=== PATIENT | male | born 1945 | race Caucasian/White ===

== ENCOUNTER 2021-04-18 09:20 | Emergency (ER) | payer MEDICARE, SELFPAY ==
--- NOTE | ~2021-04-18 | XR_ITS ---
EXAMINATION: XR CHEST CLINICAL INFORMATION: SOB. COMPARISON: None TECHNIQUE: Frontal view of the chest was obtained. FINDINGS: The lungs are hypoexpanded but clear. The heart size is borderline enlarged with normal pulmonary vascularity. No gross bony abnormality seen. XR/XR chest 1V IMPRESSION: Expanded lungs without acute process. Mild cardiomegaly.
[2021-04-18 09:37] VITALS: BP 150/63; BP 174/63; PULSE 71; PULSE 78; RESP 18; TEMP 37.7; O2SAT 94; O2SAT 95; BMI 33.0
[2021-04-18 10:54] LABS: Influenza A PCR NEGATIVE (Negative); Influenza B PCR NEGATIVE (Negative); Resp Syncy Virus RNA Qual PCR NEGATIVE (Negative); SARS COV2 PCR INHOUSE POSITIVE (Negative)
[2021-04-18 11:27] VITALS: BP 181/84; PULSE 67; RESP 18; TEMP 37.1; O2SAT 97
--- NOTE | 2021-04-18 11:30 | ED.GENADULT ---
HPI - General Adult General Chief complaint: General Medical Stated complaint: COLD LIKE SYMTPOMS, FULLY VACCINATED Time Seen by Provider: 04/18/21 09:36 History of Present Illness HPI narrative: Patient is 76 years old history of multiple back surgery in the past. Patient also had her his coronavirus vaccine back in August. Came back in today complaining that she use been having coughing congestion upper respiratory symptoms. Positive generalized malaise. Patient from home. Also having back pain that radiates down the leg which is chronic. Baseline patient ambulates with a walker. Pain is 8/10. Related Data Allergies Allergy/AdvReac Type Severity Reaction Status Date / Time lisinopril [Lisinopril] Allergy Unknown SWELLING Verified 04/18/21 09:43 TONGUE Review of Systems Review of Systems: Positive back pain positive coughing upper respiratory symptoms Yes all other systems are reviewed and are negative PMFSH Past Medical History Attestation statement: The following information was validated with the patient. Medical History Diabetes Paget's disease Surgical History History of back surgery Social History Social History Advance Directives: No Advance Directives Information Provided: No Physical Exam Vital Signs: Vital Signs: Last Vital Signs Temp 98.7 F 04/18/21 11:27 Pulse 67 04/18/21 11:45 Resp 18 04/18/21 11:27 BP 181/84 H 04/18/21 11:27 Pulse Ox 97 04/18/21 11:45 Body Mass Index 33.0 Appearance: Alert. Oriented X3. No acute distress. Eyes: Pupils equal, round and reactive to light. ENT: Pharynx normal. Neck: Normal inspection. Neck supple. No lymph nodes noted. No crepitus CVS: Normal heart rate and rhythm. Pulses normal. Normal S1 and S2 Respiratory: No respiratory distress. Breath sounds normal. Positive Wheezing. No rales Abdomen: Soft and nontender. No rigidity. No distention. good BS x4 Skin: Skin warm and dry. Normal skin color. Normal skin turgor. Extremities: No lower extremity edema. Neurovascular intact to all extremities. No Lacerations. No Rash Neuro: Oriented X 3. No motor deficit. No sensory deficit. Moving all extermities. No slurred speech Medical Decision Making MDM Narrative Medical decision making narrative: Chronic back pain. No new bowel urinary incontinence. No new focal weakness. Will get physical therapy to evaluate patient for possible rehab placement as family feel patient unsafe at home. Patient's COVID test was positive positive URI symptoms. Luckily patient already received his vaccine. His O2 sats 97% on room air. He is in no distress. Will get an x-ray. Will monitor carefully. Chest x-ray showed no focal infiltrate patient wants to be placed in rehab for his back pain. Currently is in stable condition. No distress. Social work consult physical therapy consulted. Lab Data Labs: Lab Results 04/18/21 Range/Units 10:06 Coronavirus (PCR) POSITIVE A (Negative) Influenza Type A (PCR) NEGATIVE (Negative) Influenza Type B (PCR) NEGATIVE (Negative) RSV RNA Qual (PCR) NEGATIVE (Negative) Discharge Plan Discharge Clinical Impression: COVID-19, Back pain
[2021-04-18 11:45] VITALS: PULSE 67; O2SAT 97
--- NOTE | 2021-04-18 12:16 | MHC.CM.ED ---
Addendum entered by Luz Maria Arceo 04/18/21 12:20: Genoveva can be reached via telephone at [phone]. Original Note: Received case management consult from Dr Mares. Patient came to the ER due to cold like symptoms since last Sunday. Patient is positive for Covid. Met with patient's daughter, Genoveva in regards to discharge planning. Patient lives alone, ambulates with a walker and is active with [facility] for nursing and PT. Patient had back surgery in February. Since that time patient has been having difficulty ambulating. PCP verified. Patient received Pfizer vaccines on 09/08 and 09/29. Genoveva has been looking into rehab at [facility]. T/W explained rehab placement may be difficult at this time due to +Covid. Genoveva verbalizes understanding and agreeable to referral being broadcasted for acute rehab and fpc facilities. Referrals broadcasted in [employer]. Continue to monitor for d/c needs.
[2021-04-18] MEDS: oxyCODONE HCl Immed Release 5 MG TABLET PO (12:48)
--- NOTE | 2021-04-18 15:02 | MHC.CM.ED ---
[facility] is the only acute rehab that is able to accept Covid patients. Waiting to hear from liaison if bed can be offered. [facility] is only facility in the area that can potentially offer a +covid bed. Genoveva aware of above information and verbalizes understanding that patient will spend the night in the ER. Continue to monitor for d/c needs.
--- NOTE | 2021-04-18 20:44 | PC.NURSE ---
patient COVID positive. A+ox4. Ambulates independently. Frustrated with being in hospital very disrespectful and inappropriate to staff. VSS. Resting safely.
[2021-04-18 22:18] VITALS: BP 135/72; PULSE 65; RESP 18; TEMP 36.1; O2SAT 98
[2021-04-18 23:33] VITALS: BP 177/97; PULSE 53; RESP 13; O2SAT 947
[2021-04-19] MEDS: diazePAM 5 MG TABLET PO (02:01)
--- NOTE | 2021-04-19 02:19 | PC.NURSE ---
pt a&O, denies sob or chest pain. pt incontinent of urine and stool. complete bed change and win[facility]red care. medicated per Sep.
[2021-04-19 02:20] VITALS: RESP 16; TEMP 37.3
[2021-04-19] MEDS: ondansetron HCL 4 MG/2 ML VIAL IVPUSH (03:45)
--- NOTE | 2021-04-19 03:49 | PC.NURSE ---
pt having nausea and vomiting, provider aware and medicated per mar.
[2021-04-19 04:38] VITALS: BP 171/74; PULSE 76
--- NOTE | 2021-04-19 05:26 | PC.NURSE ---
pt reports relief with nausea medication.
--- NOTE | 2021-04-19 06:04 | PC.NURSE ---
PT REQUESTING RECLINER. PT HELPED INTO RECLINER BY THIS PCT. PT STATES HE IS UNCOMFORATBLE IN RECLINER AND WANTS TO GO BACK INTO BED. PT NOW RESTING IN BED. CALL GUILLERMO PLACED WITHIN REACH.
--- NOTE | 2021-04-19 06:45 | PC.NURSE ---
Spoke to daughter Genoveva in regard to father current status and plan of care. [phone]
[2021-04-19 07:26] VITALS: BP 170/70; PULSE 64; RESP 18; O2SAT 97
--- NOTE | 2021-04-19 07:31 | PC.NURSE ---
pt alert and oriented. denies chest pain/dizziness/headache, dry non-productive cough noted. Pt rang to be assisted back to bed and stated he wants to go home. pt reports sob after transferring from recliner to bed, after transfer pt satting 97-98% on 2L O2 n/c, no apparent distress noted. resting quietly. will continue to monitor
--- NOTE | 2021-04-19 08:51 | MHC.CM.ED ---
Patient remains in ER. [facility] is not able to offer a bed. [facility] is looking for bed availability. Continue to monitor for d/c needs.
[2021-04-19] MEDS: FLUoxetine HCl 20 MG CAPSULE 40 MG PO (09:17)
[2021-04-19] MEDS: Ferrous Sulfate 324 MG TABLET.DR PO (09:18)
[2021-04-19] MEDS: Tamsulosin HCL 0.4 MG CAPSULE PO (09:18)
--- NOTE | 2021-04-19 09:54 | MHC.CM.ED ---
Received telephone call from patient's daughter Genoveva. Genoveva is reluctant to send patient to [facility] because she has not heard good things about the facility. Genoveva will speak to her siblings about finding private pay home health aides. Also agreeable to referral being broadcasted within 50 miles. Referral broadcasted in [employer]. Continue to monitor for d/c needs.
[2021-04-19 10:48] VITALS: BP 113/57; PULSE 57; RESP 18; O2SAT 98
--- NOTE | 2021-04-19 10:56 | PC.NURSE ---
pt up to recliner, vss, O2 satting 96-97% r/a. no sob/headache/dizziness. no chest pain. pt continues to ask when can he go home. will follow up with upper caser.
--- NOTE | 2021-04-19 11:05 | PC.NURSE ---
pt transferred back to bed, O2 remains 96-98% r/a after transfer. pt denies sob. will continue to monitor.
[2021-04-19 11:08] VITALS: PULSE 62; O2SAT 98
--- NOTE | 2021-04-19 13:00 | PC.NURSE ---
pt up to recliner to eat lunch. no c/o sob/headache/dizziness. vss. O2 sat 96-98% R/A. Pt cleared for discharge to home.
--- NOTE | 2021-04-19 13:03 | MHC.CM.ED ---
Patient and family has decided to patient to return home with [facility]. [facility] booked. Med nec with chart. Patient, daughter Joaquin Tomas RN and Nyasia SABILLON aware. Continue to monitor for d/c needs.
== END 2021-04-19 18:12 | disposition skilled nursing facility (03) ==
PROVIDERS: Emergency Provider Emergency Medicine Emergency Medical Services; PCP Internal Medicine
DX: U07.1 COVID-19 (principal); M54.5 Low back pain
CPT/HCPCS: 0241U; 36415; 71045; 96374; 97162; 99284; J2405

== ENCOUNTER 2021-06-22 13:55 | Outpatient (REF) | payer MEDICARE, SELFPAY ==
--- NOTE | ~2021-06-22 | CT_ITS ---
EXAMINATION: CT ABDOMEN AND PELVIS WITH CONTRAST CLINICAL INFORMATION: Abdominal pain, sweating. COMPARISON: None TECHNIQUE: Multidetector volumetric images were obtained from the superior aspect of the liver through the pubic symphysis following administration 85 mL of Omnipaque 350 intravenous contrast. Sagittal and coronal reformatted images were obtained on the technologist's workstation. Oral contrast: No This CT examination was performed using dose optimization techniques as appropriate, variously including the following: *Automated exposure control *Adjustment of mA and/or kV according to patient size (this includes techniques or standardized protocols for targeted exams where dose is matched to indication/reason for exam; i.e. extremities or head) *Use of iterative reconstruction technique DLP: 664 mGy-cm FINDINGS: LUNG BASES: There is platelike atelectasis left lung base. The heart size is normal. LIVER, GALLBLADDER, AND BILIARY TREE: The liver is normal in size, shape, and attenuation. No focal hepatic lesion or biliary ductal dilatation is present. The gallbladder has been surgically removed. PANCREAS: Unremarkable. SPLEEN: Unremarkable. ADRENAL GLANDS: Unremarkable. KIDNEYS AND URETERS: The kidneys are normal in size, shape, and attenuation. There is mild thinning of bilateral kidney cortices. Small hypodense areas seen in the midpole right kidney probable small cyst measuring 8 mm. No hydronephrosis, hydroureter, or calculi seen. No perinephric stranding. BLADDER: Unremarkable. GASTROINTESTINAL TRACT: There is scattered stool, diverticuli and gas seen throughout the colon. There is no mural thickening or fat stranding to suspect any diverticulitis. Oral contrast opacified small bowel loops are normal caliber. There is mild nonspecific thickening of second segment of the duodenum question peristalsis versus duodenitis. The proximal jejunal loops show some mural thickening as well. Appendix is not visualized. ABDOMINAL WALL: No significant hernia is appreciated. LYMPH NODES: No abnormal size retroperitoneal or mesenteric lymph nodes seen. VASCULAR: Mild sclerotic changes of abdominal aorta noted without aneurysmal dilatation. PELVIC VISCERA: There is no free air or free fluid. The prostate gland is normal size with central gland calcification. OSSEOUS STRUCTURES: Degenerative disc changes and vacuum disc phenomena L2-L3 through L5/S1 disc level. There is superior endplate compression fracture L5 vertebra likely old. Mild deformity of L1 and T12 vertebra is noted also . CT/CT abdomen pelvis w con IMPRESSION: Mild mural thickening involving the duodenum and scattered thickening of the proximal jejunal loops suspicious for inflammatory or infectious etiology there is no gastric or duodenal ulceration suspected on this exam. Mild constipation. Fleischner guidelines were followed.
[2021-06-22] MEDS: iohexoL 350 MG/ML 100 ML INFUS..BTL IV (16:31)
[2021-06-22] MEDS: Barium Sulfate Oral (Berry) 450 ML ORAL.SUSP 900 ML PO (16:32)
== END 2021-06-22 13:56 | disposition home or self-care (01) ==
LOC: HO.CT 13:55
PROVIDERS: PCP Internal Medicine; Visit Provider Internal Medicine
DX: L74.9 Eccrine sweat disorder, unspecified (principal); R10.9 Unspecified abdominal pain
CPT/HCPCS: 74177; Q9967

== ENCOUNTER 2021-07-20 15:20 | Outpatient (REF) | payer MEDICARE, SELFPAY ==
--- NOTE | ~2021-07-20 | US_ITS ---
EXAMINATION: US RETROPERITONEAL LIMITED (RENAL ONLY) CLINICAL INFORMATION: Renal calculus. COMPARISON: CT 06/22/2021 TECHNIQUE: Real-time imaging of the kidneys. FINDINGS: RIGHT KIDNEY: 9.4 x 4.8 x 3.6 cm (SAG x AP x TRV). The kidney is normal in size, contour, and echogenicity. Renal cortical thickness is normal. No hydronephrosis. 2 small simple appearing cysts are identified measuring 1.1 cm in maximal dimension, no further imaging follow-up recommended. Nonobstructing calculus lower pole adjacent to one of the cysts measuring 0.5 x 0.4 cm. LEFT KIDNEY: 10.6 x 5.0 x 4.4 cm (SAG x AP x TRV). The kidney is normal in size, contour, and echogenicity. Renal cortical thickness is normal. No focal parenchymal lesions or hydronephrosis. Nonobstructing lower pole calculus measures 0.3 x 0.3 cm. US/US renal BI IMPRESSION: Small nonobstructing renal calculi as described above, one within each kidney.
== END 2021-07-20 15:21 | disposition home or self-care (01) ==
LOC: HO.US 15:20
PROVIDERS: PCP Internal Medicine; Visit Provider Urology
DX: N20.2 Calculus of kidney with calculus of ureter (principal)
CPT/HCPCS: 76775

== ENCOUNTER 2023-03-06 16:18 | Emergency (ER) | payer MEDICARE, SELFPAY ==
--- NOTE | ~2023-03-06 | CT_ITS ---
Examination: CT brain and CT cervical spine without contrast. CLINICAL INDICATION: Fall with head strike. COMPARISON: 02/05/2023 TECHNIQUE: 5 mm thin axial and reformatted 2 mm thin sagittal and coronal images of brain were obtained. Subsequently axial 3 mm thin and reformatted 2 mm thin sagittal and coronal images of cervical spine were obtained. DLP 1424. FINDINGS: Brain: There is no acute intra-axial, extra-axial bleed, masses or midline shift. There is no acute infarction in evolution. There is no edema. The rodriguez to white matter differentiation is maintained normal. The lateral ventricles are symmetrical in size and configuration without enlargement. Bone windows reveal no calvarial abnormality. There is no scalp soft tissue abnormality. Cervical spine: There is reversal of cervical lordosis. There is grade 1 anterolisthesis C3 over C4, C4 over C5 and C7 over T1. There is loss of C5-C6, C6-C7 and C7-T1 disc heights. There is moderate left C5-C6 and C6-C7 neural foraminal narrowing from uncovertebral hypertrophic changes. There is moderate C3-C4, C4-C5 facet joint hypertrophy. The craniovertebral junction and the C1-C2 alignment is normal. No visible acute fracture, dislocation or subluxation seen. The prevertebral and paravertebral soft tissues are normal. The airway is widely patent. CT/CT head/brain wo IV con IMPRESSION: 1. No acute intracranial process seen. 2. There is reversal of cervical lordosis with degenerative disc changes C5-C6, C6-C7 and C7-T1 disc levels. There is grade 1 anterolisthesis C3 over C4, C4 over C5 and C7 over T1. No visible acute fracture or dislocation seen.
--- NOTE | ~2023-03-06 | XR_ITS ---
EXAMINATION: XR CHEST CLINICAL INFORMATION: Confusion COMPARISON: Chest radiograph from 04/18/2021 TECHNIQUE: Frontal view of the chest was obtained. FINDINGS: Bilateral low lung volumes. Accentuation of the pulmonary vasculature. No pneumothorax. Trachea is midline. Cardiac mediastinal silhouette is enlarged. Aorta demonstrates tortuosity with sclerotic calcifications. No large pleural effusion. Degenerative changes of the thoracolumbar slight levocurvature of the upper lumbar spine. Soft tissues are unremarkable. XR/XR chest 1V IMPRESSION: 1. Bilateral low lung volumes. 2. Accentuation of the pulmonary vasculature.
--- NOTE | ~2023-03-06 | CT_ITS ---
Examination: CT brain and CT cervical spine without contrast. CLINICAL INDICATION: Fall with head strike. COMPARISON: 02/05/2023 TECHNIQUE: 5 mm thin axial and reformatted 2 mm thin sagittal and coronal images of brain were obtained. Subsequently axial 3 mm thin and reformatted 2 mm thin sagittal and coronal images of cervical spine were obtained. DLP 1424. FINDINGS: Brain: There is no acute intra-axial, extra-axial bleed, masses or midline shift. There is no acute infarction in evolution. There is no edema. The rodriguez to white matter differentiation is maintained normal. The lateral ventricles are symmetrical in size and configuration without enlargement. Bone windows reveal no calvarial abnormality. There is no scalp soft tissue abnormality. Cervical spine: There is reversal of cervical lordosis. There is grade 1 anterolisthesis C3 over C4, C4 over C5 and C7 over T1. There is loss of C5-C6, C6-C7 and C7-T1 disc heights. There is moderate left C5-C6 and C6-C7 neural foraminal narrowing from uncovertebral hypertrophic changes. There is moderate C3-C4, C4-C5 facet joint hypertrophy. The craniovertebral junction and the C1-C2 alignment is normal. No visible acute fracture, dislocation or subluxation seen. The prevertebral and paravertebral soft tissues are normal. The airway is widely patent. CT/CT cervical spine wo IV con IMPRESSION: 1. No acute intracranial process seen. 2. There is reversal of cervical lordosis with degenerative disc changes C5-C6, C6-C7 and C7-T1 disc levels. There is grade 1 anterolisthesis C3 over C4, C4 over C5 and C7 over T1. No visible acute fracture or dislocation seen.
[2023-03-06 16:22] VITALS: BP 142/78; PULSE 82; O2SAT 94
[2023-03-06 16:31] VITALS: BP 138/65; PULSE 87; RESP 16; TEMP 37.2; O2SAT 94; BMI 31.6
--- OUTSIDE RECORDS SUMMARY | 2023-03-06 16:41 | XMS_ITS | Continuity of Care Document ---
Author Name Unknown Organization [facility] ter Address [address] [place] [id number]- Care Team Providers Care Skeins Yarn Examiner Name Role Phone River Hernandez MD Primary Care Physician Encounter [facility] [place] Date(s): 09/27/20 - 09/27/[address] [address]- Discharge Disposition: A-D/C Home Attending Physician: Chemo Munguia DO Admitting Physician: Chemo Munguia DO Referring Physician: Not on Staff, Referring MD Allergies, Adverse Reactions, Alerts Substance Reaction Severity Status NKA Active Immunizations Given and Recorded Vaccine Date Status Refusal Reason Zoster Vaccine Live 07/27/08 Given Medications acetaminophen-HYDROcodone 325 mg-10 mg oral tablet 1 tablet, By Mouth, Every 6 hours, PRN for pain, 0 Refills, Maintenance, 09/22/15 10:26:30, Tablet Start Date: 09/22/15 Status: Ordered diazepam 2 mg oral tablet 1 tablet = 2 mg, By Mouth, Daily, 0 Refills, Maintenance, 09/22/15 10:26:15, Tablet Start Date: 09/22/15 Status: Ordered fluoxetine 40 mg oral capsule 1 capsule = 40 mg, By Mouth, Daily, 0 Refills, Maintenance Start Date: 10/09/11 Status: Ordered fluticasone 50 mcg inhalation powder Inhalation, 2 times a day, 0 Refills, Maintenance Start Date: 10/09/11 Status: Ordered gabapentin 300 mg oral capsule 1 capsule = 300 mg, By Mouth, Daily at bedtime, 0 Refills, Maintenance, 09/22/15 10:26:01, Capsule Start Date: 09/22/15 Status: Ordered losartan 50 mg oral tablet 1 tablet = 50 mg, By Mouth, Daily, 0 Refills, Maintenance Start Date: 10/09/11 Status: Ordered meloxicam 15 mg oral tablet 1 tablet = 15 mg, By Mouth, Daily, # 30 tablet, 0 Refills, Maintenance, 09/22/15 10:27:07, Tablet Start Date: 09/22/15 Status: Ordered metformin 500 mg oral tablet, extended release 1 tablet = 500 mg, By Mouth, Daily, 0 Refills, Maintenance Start Date: 10/09/11 Status: Ordered MorPHINE Inj 4 mg, Injection, IV Push Slowly, Every 15 minutes for 3 doses/times, PRN for Pain , Severe, Routine, 09/27/20 9:03:00 EST, Stop date Limited # of times Start Date: 09/27/20 Stop Date: 09/27/20 Status: Completed omeprazole 20 mg oral enteric coated capsule 1 capsule = 20 mg, By Mouth, Daily, 0 Refills, Maintenance Start Date: 10/09/11 Status: Ordered ProAir HFA Inhalation, 4 times a day, 0 Refills, Maintenance Start Date: 10/09/11 Status: Ordered simvastatin 40 mg oral tablet 1 tablet = 40 mg, By Mouth, Daily at bedtime, 0 Refills, Maintenance Start Date: 10/09/11 Status: Ordered Problem List Condition Effective Dates Status Health Status Inform ant Benign Essential Hypertension(Confirmed) Active COPD (chronic obstructive pu lmonary disease)(Confirmed) Active Diabetes mellitus(Confirmed) Active Hyperlipidemia(Confirmed) Active Nephrolithiasis(Confirmed) Active Low back pain(Confirmed) Active Anxiety and depression(Confirmed) Active Morbid obesity(Confirmed) 1 Active VICK on CPAP(Confirmed) Active Psoriasis(Confirmed) Active 1Initial Weight 08/26/15 293.2 lbs. Results Radiology Reports * Exam Date Time Procedure Performing Provider Status 09/27/20 10:21 AM Chest 2 Views Frontal and Lat Lyndsey Wagner; Auth (Verified) Notes: (Chest 2 Views Frontal and Lat) Reason For Exam: Shortness of Breath RESULT: Chest 2 Views Frontal and Lat Chest 2 Views Frontal and Lat Hx of Present Illness: Pt. r p with left flank pain x 3 days- constant with varying degrees of intensity; radiates around to right lat. abd.; no fever or chills; +nausea without vomiting. +constipation; no hematuria or dysuria- +increased frequency; Reason: Shortness of Breath; Clinical Question(s): Pneumonia COMPARISON: 09/06/17 FINDINGS: No acute cardiopulmonary process IMPRESSION: No acute abnormality. WSN: [id number] Ordering Physician: Chemo Munguia Dictated By: Bridger Santiago MD Dictated Date/Time: 09/27/20 10:23 a Reviewed By: Bridger Santiago MD Signed By: Bridger Santiago MD Signed Date/Time: 09/27/20 10:23 am Transcribed By: DERRELL Transcribed Date/Time: 09/27/20 10:21 am Vital Signs Most recent to oldest [Reference Range]: 1 2 3 Oxygen Saturation [94-100 %] 95 % (09/27/20 12:17 PM) 98 % (09/27/20 10:00 AM) 97 % (09/27/20 9:06 AM) Pulse Rate [55-90 bpm] 65 bpm (09/27/20 12:17 PM) 69 bpm (09/27/20 10:00 AM) 63 bpm (09/27/20 9:06 AM) Blood Pressure [90-138/55-84 mm Hg] 129/61mm Hg (09/27/20 12:17 PM) 159/78mm Hg *H* (09/27/20 10:00 AM) 156/63mm Hg *H* (09/27/20 9:06 AM) Respiratory Rate [16-30 br/min] 16 br/min (09/27/20 12:17 PM) 18 br/min (09/27/20 12:08 PM) 18 br/min (09/27/20 11:02 AM) Temperature [96.8-100.4 DegF] 98.9 DegF (09/27/20 12:17 PM) 100.4 DegF (09/27/20 9:06 AM) 99.8 DegF (09/27/20 7:42 AM) Mode of Delivery (Oxygen) Room air (09/27/20 12:17 PM) Room air (09/27/20 10:00 AM) Room air (09/27/20 9:06 AM) Blood pressure sites Arm, right (09/27/20 12:17 PM) Temperature Route Oral (09/27/20 12:17 PM) Oral (09/27/20 9:06 AM) Oral (09/27/20 7:42 AM) Social History Social History Type Response Smoking Status Former smoker; Other : smoked for 50 years; entered on: 09/22/15 Sex
--- OUTSIDE RECORDS SUMMARY | 2023-03-06 16:41 | XMS_ITS | Continuity of Care Document ---
Author Name Unknown Organization [facility] Address [address] [place] [id number]- Care Team Providers Care Club Manager Name Role Phone River Hernandez MD Primary Care Physician [place] [facility] [place] 02/13/[address] [address]- Discharge Disposition: A-D/C Home Attending Physician: Lorena Cantu Admitting Physician: Lorena Cantu Referring Physician: Lorena Cantu Allergies, Adverse Reactions, Alerts Substance Reaction Severity Status NKA Active Immunizations Given and Recorded Vaccine Date Status Refusal Reason SARS-CoV-2 (COVID-19) mRNA BNT-162b2 vac 09/29/20 Given SARS-CoV-2 (COVID-19) mRNA BNT-162b2 vac 09/08/20 Given Zoster Vaccine Live 07/27/08 Given Medications acetaminophen-HYDROcodone [...] Refills, Maintenance Start Date: 10/09/11 Status: Ordered omeprazole 20 mg oral enteric coated capsule [...] Psoriasis(Confirmed) Active 1Initial Weight 08/26/15 293.2 lbs. Social History Social History Type Response Smoking Status Former smoker; Other : smoked for 50 years; entered on: 09/22/15 Sex
--- OUTSIDE RECORDS SUMMARY | 2023-03-06 16:41 | XMS_ITS | Continuity of Care Document ---
Author Name Unknown Organization [facility] Address [address] [place] [address], [address] [place] [address]- Care Team Providers Care Landing Support Specialist Name Role Phone River Hernandez MD Primary Care Physician [place] [facility] [place]16[place] - 10/16/20 [facility] [address] [place] [address], [address] [place] [address]- Attending Physician: Ramya Gottlieb Admitting Physician: AdmRamya curtis Referring Physician: AdmtrRamya Allergies, Adverse Reactions, Alerts Substance Reaction Severity [...]
--- OUTSIDE RECORDS SUMMARY | 2023-03-06 16:41 | XMS_ITS | Continuity of Care Document ---
Author Name Unknown Organization [facility] ter Address [address] [place] [id number]- Care Team Providers Care Florist Designer Name Role Phone River Hernandez MD Primary Care Physician [place] [facility] [place] - 05/11/[address] [address]- Discharge Disposition: A-D/C Home Attending Physician: Trung Perla MD Admitting Physician: James Hall MD Referring Physician: Not on Staff, Referring MD Allergies, Adverse Reactions, Alerts Substance Reaction Severity Status NKA Active Immunizations Given and Recorded Vaccine Date Status Refusal Reason influenza virus vaccine, inactivated 05/10/21 Give n SARS-CoV-2 (COVID-19) mRNA BNT-162b2 vac 09/29/20 Given SARS-CoV-2 (COVID-19) mRNA BNT-162b2 vac 09/08/20 Given Zoster Vaccine Live 07/27/08 Given Medications diazepam 2 mg oral tablet 1 tablet = 2 mg, By Mouth, Daily, 0 Refills, Maintenance, 09/22/15 10:26:15, Tablet Start Date: 09/22/15 Status: Ordered Dilaudid Inj 0.5 mg, Injection, IV Push Slowly, Every 4 hours, PRN for Pain , Severe, Routine, 05/09/21 22:13:00EDT Start Date: 05/09/21 Stop Date: 05/12/21 Status: Discontinued Flomax 0.4 mg oral capsule 0.4 mg, 1, capsule, By Mouth, Daily, Refills 0, Maintenance, 02/28/21 9:13:00 EDT, Partial fill upon patient request if the prescription is for a schedule II opioid drug. Start Date: 02/28/21 Status: Ordered fluoxetine 40 mg oral capsule [...] Refills, Maintenance Start Date: 10/09/11 Status: Ordered magnesium gluconate 500 mg oral tablet 2 tablet = 1,000 mg, By Mouth, Daily, 0 Refills, Maintenance, 02/28/21 9:24:00 EDT, Partial fill upon patient request if the prescription is for a schedule II opioid drug. Start Date: 02/28/21 Status: Ordered metformin 500 mg oral tablet, extended release 1 tablet = 500 mg, By Mouth, Daily, 0 Refills, Maintenance Start Date: 10/09/11 Status: Ordered omeprazole 20 mg oral enteric coated capsule 1 capsule = 20 mg, By Mouth, Daily, 0 Refills, Maintenance Start Date: 10/09/11 Status: Ordered oxyCODONE 10 mg oral tablet 1 tablet = 10 mg, By Mouth, Every 4 hours, PRN as needed for pain, 0 Refills, Maintenance, 03/03/2112:31:00 EDT, Tablet, Partial fill upon patient request if the prescription is for a schedule II opioid drug. Start Date: 03/03/21 Status: Ordered simvastatin 40 mg oral tablet [...] Psoriasis(Confirmed) Active 1Initial Weight 08/26/15 293.2 lbs. Vital Signs Most recent to oldest [Reference Range]: 1 2 3 Height 180 cm (05/11/21 4:16 AM) 180 cm (05/10/21 7:19 PM) 180 cm (05/10/21 4:07 AM) Weight 108.1 kg (05/09/21 7:58 PM) Oxygen Saturation [94-100 %] 96 % (05/11/21 6:00 AM) 94 % (05/11/21 4:16 AM) 94 % (05/10/21 7:19 PM) Pulse Rate [55-90 bpm] 74 bpm (05/11/21 6:00 AM) 69 bpm (05/11/21 4:16 AM) 78 bpm (05/10/21 7:19 PM) Body Mass Index [18.5-24.99] 33.36 *>HHI* (05/09/21 7:58 PM) Blood Pressure [90-138/55-84 mm Hg] 147/68mm Hg *H* (05/11/21 6:00 AM) 151/79mm Hg *H* (05/11/21 4:16 AM) 137/60mm Hg (05/10/21 7:19 PM) Respiratory Rate [16-30 br/min] 20 br/min (05/11/21 2:33 PM) 18 br/min (05/11/21 12:20 PM) 6 br/min *L* (05/11/21 9:45 AM) Temperature [96.8-100.4 DegF] 98.2 DegF (05/11/21 6:00 AM) 98.4 DegF (05/11/21 4:16 AM) 98.3 DegF (05/10/21 7:19 PM) Mode of Delivery (Oxygen) Room air (05/11/21 6:00 AM) Room air (05/11/21 4:16 AM) Room air (05/10/21 7:19 PM) Blood pressure sites Arm, right (05/11/21 6:00 AM) Arm, right (05/11/21 4:16 AM) Arm, right (05/10/21 7:19 PM) Temperature Route Oral (05/11/21 6:00 AM) Oral (05/11/21 4:16 AM) Oral (10/12/21 7:19 PM) Dry Weight 108.1 kg (05/09/21 7:58 PM) Weight Obtained Via Bed scale (05/09/21 7:58 PM) Dry Weight Obtained Via Bed scale (05/09/21 7:58 PM) Social History Social History Type Response Smoking Status Former smoker; Other : smoked for 50 years; entered on: 09/22/15 Sex
--- OUTSIDE RECORDS SUMMARY | 2023-03-06 16:41 | XMS_ITS | Patient Health Record ---
Author Name Unknown [facility] Address [address] [place] [id number] Care Team Providers Care Sueding Machine Tender Name Role Phone River Hernandez MD Primary Care Provider Raymon Norris Unavailable [phone] ALLERGIES No Known Allergies RESULTS Component Value Reference Range Notes HEMOGLOBIN A1C (GLYCOHEMOGLO BIN) Reviewed date:04/25/2022 12:54:14 PM Interpretation: Performing Lab: Notes/Report: TOTAL HEMOGLOBIN (HGBA1C) HEMOGLOBIN A1C (HH) HEMOGLOBIN A1C % (HH) 6.0 ESTIMATED AVG GLUCOSE HEMOGLOBIN A1C (GLYCOHEMOGLO BIN) Reviewed date:10/27/2022 11:09:43 AM Interpretation: Performing Lab: Notes/Report: TOTAL HEMOGLOBIN (HGBA1C) HEMOGLOBIN A1C (HH) HEMOGLOBIN A1C % (HH) 6.5 ESTIMATED AVG GLUCOSE REASON FOR REFERRAL No Information MEDICATIONS Medication SIG (Take, Route, Fr equency, Duration) Notes Start Date End Date Status metFORMIN HCl Active Iron Not-Taking OxyCONTIN 10 MG 1 tablet Orally every 12 hrs Active Clotrimazole 1 % APPLY 1 APPLICATION EXTERNALLY TWICE A DAY FOR 30 DAYS for 30 Active Flomax Active Aspirin 81 mg Once a day Not-T aking Marijuana Active Percocet 5-325 MG 1 tablet as needed O rally every 6 hrs 11/07/2013 Not-Taking Azithromycin Not-Jose Antonio ing methylPREDNISolone N ot-Taking Cheratussin DAC Not- Taking Xopenex Not-Taking Vicodin Not-Taking PROzac Active PriLOSEC Not-Taking IMMUNIZATIONS Vaccine Route Administration Date Status Comme nts COVID-19 Pfizer BioNTech Vaccine Unknown 04/16/2021 Administered 1st 09/16/2020 2nd 09/30/2020 Influenza Unknown 04/14/2022 Administered Pneumococcal Unknown 04/14/2015 Administered SOCIAL HISTORY Tobacco Use: Social History Observation Description Date Details (start date - stop date) Never Smoker NA - NA Sex Assigned At : Social History Observation Description Sex Assigned At Unknown Tobacco Use/Smoking Question Answer Notes Are you a: nonsmoker Alcohol Screen Question Answer Notes Did you have a drink containing alcohol in the p ast year? No Points 0 Interpretation Negative Tobacco use other than smoking: Question Answer Notes Are you an other tobacco user? 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) Active confirmed Type 2 diabetes mellitus with peripheral angiopathy (224852779) VITAL SIGNS Blood pressure diastolic 80 mm Hg 10/27/2022 Height 5 ft 11 in in 10/27/2022 Blood pressure systolic 120 mm Hg 10/27/2022 Weight 214 lbs 10/27/2022 BMI 29.84 kg/m2 10/27/2022 Encounters Encounter Location Date Provider Diagnosis [address] [address] 04/25/2022 Raymon Beebe Type 2 diabetes mellitus without complication E11.9 ; Pain in right toe(s) M79.674 ; Tinea unguium B35.1 ; Pain in left toe(s) M79.675 ; Ingrowing nail L60.0 and Tinea pedis B35.[address] [address] [facility] [address] [address] 07/04/[address] [address] 08/04/2022 Raymon Beebe Type 2 diabetes mellitus with diabetic peripheral angiopathy without gangrene E11.51 ; Tinea unguium B35.1 ; Pain in right toe(s) M79.674 and Pain in left toe(s) M79.675 [address] [place] [address] 10/27/2022 Raymon Beebe Type 2 diabetes mellitus with diabetic peripheral angiopathy without gangrene E11.51 ; Tinea unguium B35.1 ; Pain in right toe(s) M79.674 and Pain in left toe(s) M79.675 [facility] [address] [address] 01/12/2023 Raymon Beebe Type 2 diabetes mellitus with diabetic peripheral angiopathy without gangrene E11.51 ; Tinea unguium B35.1 ; Pain in right toe(s) M79.674 ; Pain in left toe(s) M79.675 and Ingrowing nail L60.0 ASSESSMENTS Encounter Date Diagnosis Assessment Notes Treatment Notes Treatment Clinical Notes 04/25/2022 Type 2 diabetes mellitus without complication (ICD-10 - E11.9) 08/04/2022 Type 2 diabetes mellitus with diabetic peripheral angiopathy without gangrene (ICD-10 - E11.51) 08/04/2022 Tinea unguium (ICD-10 - B35.1) 10/27/2022 Type 2 diabetes mellitus with diabetic peripheral angiopathy without gangrene (ICD-10 - E11.51) 10/27/2022 Tinea unguium (ICD-10 - B35.1) 01/12/2023 Type 2 diabetes mellitus with diabetic peripheral angiopathy without gangrene (ICD-10 - E11.51) 01/12/2023 Tinea unguium (ICD-10 - B35.1) 10/27/2022 Pain in right toe(s) (ICD-10 - M79.674) 08/04/2022 Pain in right toe(s) (ICD-10 - M79.674) 01/12/2023 Pain in right toe(s) (ICD-10 - M79.674) 04/25/2022 Pain in right toe(s) (ICD-10 - M79.674) 04/25/2022 Tinea unguium (ICD-10 - B35.1) 04/25/2022 Pain in left toe(s) (ICD-10 - M79.675) 10/27/2022 Pain in left toe(s) (ICD-10 - M79.675) 08/04/2022 Pain in left toe(s) (ICD-10 - M79.675) 01/12/2023 Pain in left toe(s) (ICD-10 - M79.675) 01/12/2023 Ingrowing nail (ICD-10 - L60.0) 04/25/2022 Ingrowing nail (ICD-10 - L60.0) 04/25/2022 Tinea pedis (ICD-10 - B35.3) PLAN OF TREATMENT Pending Test Test Name Order Date [id number] NAIL, 6 OR MORE 05/19/2011 03183-NMOGDKW NAIL, 6 OR MORE 08/18/2011 85529-VXECUHF NAIL, 6 OR MORE 11/24/2011 73647-ZBEUDBF NAIL, 6 OR MORE 03/12/2012 45396-PJTGVTW NAIL, 6 OR MORE 05/31/2012 50152-RVRXXWJ NAIL, 6 OR MORE 09/03/2012 40443-BCUIUFA NAIL, 6 OR MORE 12/03/2012 05929-XITYYOR NAIL, 6 OR MORE 04/04/2013 13251-UPYERIT NAIL, 6 OR MORE 07/04/2013 05380-SWZDSMB NAIL, 6 OR MORE 08/28/2014 69641-DTOOYDR NAIL, 6 OR MORE 11/27/2014 29283-RLKMHYV NAIL, 6 OR MORE 11/07/2013 75569-FNUANNN NAIL, 6 OR MORE 02/17/2014 10814-BPLYMNE NAIL, 6 OR MORE 05/26/2014 28472-OJFHSQI NAIL, 6 OR MORE 03/02/2015 39991-EGZPPDR NAIL, 6 OR MORE 08/03/2015 93503-SIGXYMO NAIL, 6 OR MORE 11/05/2015 09115-CJBPGTR NAIL, 6 OR MORE 02/22/2016 75112-WPMEZEE NAIL, 6 OR MORE 05/02/2016 32730-IXTBKWU NAIL, 6 OR MORE 08/08/2016 18808-DZHLQBG NAIL, 6 OR MORE 11/10/2016 45875-BFFSHSA NAIL, 6 OR MORE 02/09/2017 37667-CQADSGM NAIL, 6 OR MORE 06/01/2017 49164-CSCRJNG NAIL, 6 OR MORE 08/31/2017 37920-NWXNGDL NAIL, 6 OR MORE 11/23/2017 83555-QVRCALS NAIL, 6 OR MORE 01/25/2018 77717-DLZTMFF NAIL, 6 OR MORE 04/19/2018 42657-HDGXUZD NAIL, 6 OR MORE 07/12/2018 40741-HTKEVAO NAIL, 6 OR MORE 10/11/2018 29325-ITVAWYP NAIL, 6 OR MORE 01/03/2019 29959-EKTAQRB NAIL, 6 OR MORE 04/08/2019 31054-GKUMKJW NAIL, 6 OR MORE 06/17/2019 78292-GPOAHJI NAIL, 6 OR MORE 09/02/2019 91329-LWOVYMA NAIL, 6 OR MORE 11/18/2019 66386-LKIGUWH NAIL, 6 OR MORE 02/10/2020 25019-TDKDRPL NAIL, 6 OR MORE 08/06/2020 36696-IBZDUTB NAIL, 6 OR MORE 10/12/2020 87485-NWHAVFI NAIL, 6 OR MORE 01/14/2021 56152-YWKVPJM NAIL, 6 OR MORE 04/12/2021 81610-KYOEVOS NAIL, 6 OR MORE 06/28/2021 44674-EWWKUNE NAIL, 6 OR MORE 11/01/2021 64688-MGBRXGF NAIL, 6 OR MORE 02/14/2022 44421-DMEPYZO NAIL, 6 OR MORE 04/25/2022 95795-CHVGOUC NAIL, 6 OR MORE 08/04/2022 07609-SLWRHDE NAIL, 6 OR MORE 10/27/2022 76288-PEAEDWS NAIL, 6 OR MORE 01/12/2023 98293-Eelwxgpz Plate 01/12/2023 03290-Aqkxvmkl Plate 04/25/2022 91648-Yikoeozk Plate 02/14/2022 91562-Snsebjco Plate 11/01/2021 41002-Tmpzkdjn Plate 06/28/2021 66659-Cggxztur Plate 04/12/2021 02995-Gzsvplpd Plate 01/14/2021 81664-Hyayctpu Plate 10/12/2020 15743-Eccuwmyq Plate 08/06/2020 88164-Rblxzore Plate 02/10/2020 52685-Pnfhxxsg Plate 09/02/2019 03543-Ygslnasa Plate 11/18/2019 48677-Ehandtmm Plate 06/17/2019 44977-Bfmeuiyf Plate 04/08/2019 56518-Kqglaote Plate 01/03/2019 64708-Zmanltin Plate 08/31/2017 36720-Hqyzmone Plate 07/12/2018 72888-Oympuvcp Plate 10/11/2018 15849-Hlhwsdrg Plate 01/25/2018 94019-Skszkcnz Plate 11/23/2017 52193-Rhvshsai Plate 11/10/2016 70232-Ifbftwlx Plate 02/09/2017 52434-Lwhtsmgw Plate 08/08/2016 91520-Oiavnrcd Plate 02/22/2016 49086-Eisuxncj Plate 11/05/2015 84101-Ranknbpo Plate 08/03/2015 77921-Zargcpxm Plate 03/02/2015 76239-Wxdumfum Plate 05/26/2014 12209-Rjrehaga Plate 02/17/2014 42509-Jtwcywlg Plate 11/07/2013 98168-Ufazkdmu Plate 11/27/2014 24629-Znlzgywt Plate 08/28/2014 03908-Efgvbvbb Plate 07/04/2013 35766-Hwtwmsnz Plate 04/04/2013 13084-Irldqsxn Plate 12/03/2012 44265-Voipffdg Plate 09/03/2012 56952-Coyecfly Plate 05/31/2012 68835-Cnoropgv Plate 03/12/2012 47088-Kqzkpnnr Plate 11/24/2011 14851-Mwzkuyih Plate 08/18/2011 56992-Rsssgwal Plate 05/19/2011 27544-Ficgjqqj Plate Each Additional 57348-Bpzkavae Plate Each Additional 71316-Knjvhcjf Plate Each Additional 73789-Eqtpfpoe Plate Each Additional 08/2011 95931-Zgsiygol Plate Each Additional 11/2012 84655-Rhmprwos Plate Each Additional 01/2013 92759-Hontypmf Plate Each Additional 12/2012 96120-Sjaskvpr Plate Each Additional 12/2012 76577-Gawvscub Plate Each Additional 28813-Obhqioms Plate Each Additional 07/2014 64002-Wymnvofb Plate Each Additional 05/2014 42807-Cqyzxisd Plate Each Additional 18619-Zjsjorai Plate Each Additional 54412-Gkhritko Plate Each Additional 10/2014 36411-Cwstnrfe Plate Each Additional 11/2015 64510-Xykjazmv Plate Each Additional 02/2016 72946-Fqqfzsqq Plate Each Additional 08/2017 30870-Prlbxepd Plate Each Additional 97274-Sqqrmgdw Plate Each Additional 58867-Resujwuv Plate Each Additional 01/2019 85966-Eficlyhj Plate Each Additional 04/2019 78789-Vkezrwgq Plate Each Additional 77991-Osowhnxu Plate Each Additional 65193-Ercafuvm Plate Each Additional 10/2019 44724-Wjvrzmqm Plate Each Additional 62344-Opueosjf Plate Each Additional 02/2021 34299-Tzszcvkg Plate Each Additional 48359-Ctgilrly Plate Each Additional 74655-Ryveqqpg Plate Each Additional 39484-Zyllkhqh Plate Each Additional 31204-Zradklqj Plate Each Additional 11/2021 73899-Ukorkdsu Plate Each Additional 31910-Owrcxdrv Plate Each Additional 58190-LKXW SKIN LESIONS, OVER 4 10/28/19 53929-QPRK SKIN LESIONS, OVER 4 08/04/19 95313-BTVK SKIN LESIONS, OVER 4 01/13/20 Next Appt Details Provider Name:Raymon Beebe , 04/17/2023 09:00:00 AM, [address] [place], [address], Insurance Providers Payer Name Payer Address Payer Phone Subscriber Number Group Number Insured Name Patient Relationship to Insured Coverage Start Date Coverage End Date Medicare National Govt [facility] [address] [place] [address] [id number] Martinez Varghese Self - patient is the insured [employer] [address] [place] [address] [id number] Martinez Varghese Self - patient is the insured MEDICAL (GENERAL) HISTORY Medical History History ICD Code chicken pox reflux anxiety pnuemonia type II diabetes Surgical History Surgery Date(Month/Year) appendectomy endoscopy colonoscopy gall bladder Ear Surgery 11/09/16 basal cell removal- done in office 021 back surgery L4 L5 09/15/2020,09/13/21 Hospitalization History Reason Date(Month/Year) [facility] with pneumonia for 3 da ys 2017
--- OUTSIDE RECORDS SUMMARY | 2023-03-06 16:41 | XMS_ITS | Continuity of Care Document ---
Author Name Unknown Organization [facility] Address [address] [place], [place] [address], [address] [place] [address]- Care Team Providers Care Deburring Technician Name Role Phone David TALAVERA, River Primary Care Physician Encounter [facility] Date(s): 08/19/20 - 09/18/20 [facility] [address] [place] [address], [address] [place], [place] [address] Allergies, Adverse Reactions, Alerts Substance Reaction Severity [...] Maintenance Start Date: 10/09/11 Status: Ordered oxyCODONE 5 mg oral tablet 5 mg, 1, tablet, By Mouth, Every 6 hours, PRN, 1 tab every 6 hours prn pain moderate. No driving while taking this medication, # 28 tablet, Refills 0, Tot. Refills 0, Acute 09/22/20 12:17:00 EST, Pain , Moderate, 09/15/20 12:17:00 EST, Route to Pharma... Start Date: 09/15/20 Stop Date: 09/22/20 Status: Ordered ProAir HFA Inhalation, 4 times [...]
--- OUTSIDE RECORDS SUMMARY | 2023-03-06 16:41 | XMS_ITS | Continuity of Care Document ---
Author Name Unknown Organization [facility] Address [address] [facility] [place] [address]- Care Team Providers Care Rn Vascular Name Role Phone River Hernandez MD Primary Care Physician [phone] Encounter 12/16/20 - 02/05/21 [facility] [address], [address] [place] [address]- Attending Physician: River Hernandez MD Admitting Physician: River Hernandez MD Referring Physician: River Hernandez MD Allergies, Adverse Reactions, Alerts Substance Reaction [...]
--- OUTSIDE RECORDS SUMMARY | 2023-03-06 16:41 | XMS_ITS | Continuity of Care Document ---
Author Name Unknown Organization [facility] Address [address] [place] [address]- Care Team Providers Care Keymodule Assembly Supervisor Name Role Phone River Hernandez MD Primary Care Physician Encounter [facility] Date(s): 12/24/20 - 01/23/[address] [address] Attending Physician: Ramya Gottlieb Admitting Physician: AdmtrRamya Referring Physician: Admtr, ArRonny Allergies, Adverse Reactions, Alerts Substance Reaction Severity [...]
--- OUTSIDE RECORDS SUMMARY | 2023-03-06 16:41 | XMS_ITS | Continuity of Care Document ---
Author Name Unknown Organization [facility] Address [address] [place] [address]- Care Team Providers Care Ground Crewman Name Role Phone River Hernandez MD Primary Care Physician Encounter [facility] Date(s): 09/15/20 - 09/16/[address] [address] Discharge Disposition: A-D/C Home Attending Physician: Danilo Crabtree MD Admitting Physician: Danilo Crabtree MD Referring Physician: Danilo Crabtree MD Allergies, Adverse Reactions, Alerts Substance Reaction [...] Start Date: 09/22/15 Status: Ordered Dilaudid Inj 1 mg, Injection, IV Push Slowly, Every 4 hours, PRN for Pain , Severe, Routine, 09/15/20 14:46:00 EST Start Date: 09/15/20 Stop Date: 09/16/20 Status: Discontinued fluoxetine 40 mg oral capsule 1 capsule [...] Status: Ordered losartan 50 mg oral tablet 50 mg, Tablet, By Mouth, 09/16/20 9:00:00 EST Start Date: 09/16/20 Stop Date: 09/16/20 Status: Completed losartan 50 mg oral tablet 1 tablet [...] Psoriasis(Confirmed) Active 1Initial Weight 08/26/15 293.2 lbs. Procedures Procedure Date Related Diagnosis Body Site Status Laminotomy (hemilaminectomy) , with decompression of nerve root(s), including partial facetectomy, foraminotomy and/or excision of herniated intervertebral disc; 1 interspace, lumbar Completed Results Radiology Reports * Exam Date Time Procedure Performing Provider Status 09/15/20 2:51 PM C-Arm < 1 Hour Josephine Steve; Auth (Verified) Notes: (C-Arm < 1 Hour) Reason For Exam: lumbar radiculapathy microdiscectomy L4/5, tt 50min, ft 8sec, 2 images saved RESULT: C-Arm < 1 Hour Lumbar Spine 2 or 3 Views, C-Arm < 1 Hour Reason: lumbar radiculopathy microdiscectomy L4 5, tt 50min, ft 8sec, 2 images saved COMPARISON: None. FINDINGS: Intraoperative fluoroscopic support was provided. No radiologist was in attendance. 2 selected intraoperative fluoroscopic images of the lumbar spine were submitted for interpretation. Technologist time: 50 minutes. Fluoroscopic time: 8 seconds. Lateral localization image of the lumbar spine demonstrates a surgical instrument and retractor device from a posterior approach with the tip at the surgical instrument at the level of the L4-5 intervertebral disc space. The AP image demonstrates this to be located to the right of midline near the neural foramen at L4-5. IMPRESSION: Localization images of the lumbar spine as above. WSN: [id number] Ordering Physician: Danilo Crabtree Dictated By: Cassie Lunsford MD Dictated Date/Time: 09/15/20 3:06 pm Reviewed By: Cassie Lunsford MD Signed By: Cassie Lunsford MD Signed Date/Time: 09/15/20 3:06 pm Transcribed By: DERRELL Transcribed Date/Time: 09/15/20 3:02 pm * Exam Date Time Procedure Performing Provider Status 09/15/20 2:51 PM Lumbar Spine 2 or 3 Views Josephine Steve; Auth (Verified) Notes: (Lumbar Spine 2 or 3 Views) Reason For Exam: lumbar radiculopathy microdiscectomy L4/5, tt 50min, ft 8sec, 2 images saved RESULT: Lumbar Spine 2 or 3 Views Lumbar Spine 2 or 3 Views, C-Arm < 1 Hour Reason: lumbar radiculopathy microdiscectomy L4 5, tt 50min, ft 8sec, 2 images saved COMPARISON: None. FINDINGS: Intraoperative fluoroscopic support was provided. No radiologist was in attendance. 2 selected intraoperative fluoroscopic images of the lumbar spine were submitted for interpretation. Technologist time: 50 minutes. Fluoroscopic time: 8 seconds. Lateral localization image of the lumbar spine demonstrates a surgical instrument and retractor device from a posterior approach with the tip at the surgical instrument at the level of the L4-5 intervertebral disc space. The AP image demonstrates this to be located to the right of midline near the neural foramen at L4-5. IMPRESSION: Localization images of the lumbar spine as above. WSN: [id number] Ordering Physician: Danilo Crabtree Dictated By: Cassie Lunsford MD Dictated Date/Time: 09/15/20 3:06 pm Reviewed By: Cassie Lunsford MD Signed By: Cassie Lunsford MD Signed Date/Time: 09/15/20 3:06 pm Transcribed By: DERRELL Transcribed Date/Time: 09/15/20 3:02 pm Vital Signs Most recent to oldest [Reference Range]: 1 2 3 Height 180 cm (09/16/20 8:03 AM) 180 cm (09/15/20 5:43 PM) Weight 109.3 kg (09/15/20 5:43 PM) Oxygen Saturation [94-100 %] 99 % (09/16/20 8:03 AM) 98 % (09/16/20 4:17 AM) 98 % (09/15/20 11:48 PM) Pulse Rate [55-90 bpm] 65 bpm (09/16/20 8:03 AM) 78 bpm (09/16/20 4:17 AM) 73 bpm (09/15/20 11:48 PM) Body Mass Index [18.5-24.99] 33.73 *>HHI* (09/15/20 5:43 PM) Blood Pressure [90-138/55-84 mm Hg] 108/54mm Hg (09/16/20 10:16 AM) 136/80mm Hg (09/16/20 8:03 AM) 108/54mm Hg (09/16/20 4:17 AM) Respiratory Rate [16-30 br/min] 18 br/min (09/16/20 10:53 AM) 18 br/min (09/16/20 8:03 AM) 18 br/min (09/16/20 7:56 AM) Temperature [96.8-100.4 DegF] 98.1 DegF (09/16/20 8:03 AM) 98.6 DegF (09/16/20 4:17 AM) 99.5 DegF (09/15/20 11:48 PM) Liters per Minute 2 L/min (09/16/20 4:17 AM) 2 L/min (09/15/20 8:31 PM) 1 L/min (09/15/20 5:00 PM) Mode of Delivery (Oxygen) Room air (09/16/20 8:03 AM) Nasal cannula (09/16/20 4:17 AM) Room air (09/15/20 11:48 PM) Blood pressure sites Arm, left (09/16/20 8:03 AM) Arm, right (09/16/20 4:17 AM) Arm, left (09/15/20 11:48 PM) Temperature Route Temporal (09/16/20 8:03 AM) Temporal (09/16/20 4:17 AM) Temporal (09/15/20 11:48 PM) Dry Weight 109.3 kg (09/15/20 5:43 PM) 109.3 kg (09/15/20 12:24 PM) Dry Weight Obtained Via Standing scale (09/15/20 12:24 PM) Social History Social History Type Response Smoking Status Former smoker; Other : smoked for 50 years; entered on: 09/22/15 Sex
--- OUTSIDE RECORDS SUMMARY | 2023-03-06 16:41 | XMS_ITS | Continuity of Care Document ---
Author Name Unknown Organization [facility] Address [address] [place] [address] [address], [address] [place] [address]- Care Team Providers Care Right Of Way Cutter Name Role Phone David TALAVERA, River Primary Care Physician Encounter [facility] Date(s): 08/23/20 - 09/22/20 [facility] [address] [place] [address], [address] [place], [place] [address] Allergies, Adverse Reactions, Alerts Substance Reaction Severity [...]
--- OUTSIDE RECORDS SUMMARY | 2023-03-06 16:41 | XMS_ITS | Continuity of Care Document ---
Author Name Unknown Organization [facility] Address [address] [place] [address], [address] [place] [address]- Care Team Providers Care Fur Scraper Name Role Phone River Hernandez MD Primary Care Physician En[place] [facility] [place] Date(s): 08/23/20 - 10/16/[address], [address] [place] [address]- Attending Physician: Yassine Webb MD Referring Physician: River Hernandez MD Allergies, [...]
--- OUTSIDE RECORDS SUMMARY | 2023-03-06 16:41 | XMS_ITS | Continuity of Care Document ---
Author Name Unknown Organization [facility] Address [address] [place], [place] [address], [address] [place] [address]- Care Team Providers Care Content Management Consultant Name Role Phone David TALAVERA, River Primary Care Physician Encounter [facility] Date(s): 08/23/20 - 09/22/20 [facility] [address] [place] [address], [address] [place], [place] [address] Allergies, Adverse Reactions, Alerts Substance Reaction Severity [...]
--- OUTSIDE RECORDS SUMMARY | 2023-03-06 16:41 | XMS_ITS | Continuity of Care Document ---
Author Name Unknown Organization [facility] ter Address [address] [place] [id number]- Care Team Providers Care Compressor Battery Pellets Name Role Phone River Hernandez MD Primary Care Physician Encounter [facility] Date(s): 03/02/21 - 03/03/[address] [address]- Discharge Disposition: A-Transfer VNA/Home Health Attending Physician: Danilo Crabtree MD Admitting Physician: Danilo Crabtree MD Referring Physician: Danilo Crabtree MD Allergies, Adverse Reactions, Alerts Substance Reaction Severity Status NKA Active Immunizations Given and Recorded Vaccine Date Status Refusal Reason SARS-CoV-2 (COVID-19) mRNA BNT-162b2 vac 09/29/20 Given SARS-CoV-2 (COVID-19) mRNA BNT-162b2 vac 09/08/20 Given Zoster Vaccine Live 07/27/08 Given Medications Acetaminophen Tablet 650 mg, Tablet, By Mouth, Every 6 hours, PRN for Temperature, greater than 101 F, Routine, 03/02/2112:56:00 EDT Start Date: 03/02/21 Stop Date: 03/03/21 Status: Discontinued diazepam 2 mg oral tablet 1 tablet = 2 mg, By Mouth, Daily, 0 Refills, Maintenance, 09/22/15 10:26:15, Tablet Start Date: 09/22/15 Status: Ordered Flomax 0.4 mg oral capsule 0.4 mg, [...] opioid drug. Start Date: 03/03/21 Status: Ordered oxyCODONE 5 mg oral tablet 15 mg, Tablet, By Mouth, Every 6 hours, PRN for Pain , Severe, Routine, 03/02/21 12:53:00 EDT Start Date: 03/02/21 Stop Date: 03/03/21 Status: Discontinued oxyCODONE 5 mg oral tablet 5 mg, 1, tablet, By Mouth, Every 4 hours, PRN, # 28 tablet, Refills 0, Tot. Refills 0, Acute 03/11/21 12:55:00 EDT, Pain , Mild, 03/02/21 12:55:00 EDT, Route to Pharmacy Electronically, [facility], Partial fill upon patient request if th... Start Date: 03/02/21 Stop Date: 03/11/21 Status: Ordered simvastatin 40 mg oral tablet [...] Exam Date Time Procedure Performing Provider Status 03/02/21 11:09 AM Spine Single View Stephani Aragon; Jane (Verified) Notes: (Spine Single View) Reason For Exam: lumbar laminectomy compression FX RESULT: Spine Single View Spine Single View REASON: lumbar laminectomy compression FX COMPARISON: MRI from 02/24/2021. FINDINGS: 2 intraoperative crosstable lateral views were submitted. On the first there are posterior instruments at L5-S1, on the second instruments are at the level of the L5 pedicle. Multilevel degenerative changes of the spine. There is chronic-appearing anterior wedging of L1. There is height loss of the superior endplate of L5. Please refer to operative note for full details. IMPRESSION: As above. WSN: [id number] Ordering Physician: Danilo Crabtree Dictated By: Yvan Kerns MD Dictated Date/Time: 03/02/21 2:34 pm Reviewed By: Yvan Kerns MD Signed By: Yvan Kerns MD Signed Date/Time: 03/02/21 2:34 pm Transcribed By: DERRELL Transcribed Date/Time: 03/02/21 2:32 pm Vital Signs Most recent to oldest [Reference Range]: 1 2 3 Weight 105.8 kg (03/02/21 9:20 AM) Oxygen Saturation [94-100 %] 94 % (03/03/21 7:00 AM) 98 % (03/03/21 3:00 AM) 98 % (03/02/21 11:00 PM) Pulse Rate [55-90 bpm] 68 bpm (03/03/21 7:00 AM) 71 bpm (03/03/21 3:00 AM) 79 bpm (03/02/21 11:00 PM) Blood Pressure [90-138/55-84 mm Hg] 117/66mm Hg (03/03/21 7:00 AM) 110/59mm Hg (03/03/21 3:00 AM) 126/72mm Hg (03/02/21 11:00 PM) Respiratory Rate [16-30 br/min] 18 br/min (03/03/21 1:11 PM) 18 br/min (03/03/21 1:11 PM) 18 br/min (03/03/21 11:49 AM) Temperature [96.8-100.4 DegF] 98.2 DegF (03/03/21 7:00 AM) 98.2 DegF (03/03/21 3:00 AM) 98.2 DegF (03/02/21 11:00 PM) Liters per Minute 2 L/min (03/02/21 3:41 PM) 2 L/min (03/02/21 2:45 PM) 2 L/min (03/02/21 2:30 PM) Mode of Delivery (Oxygen) Room air (03/03/21 7:00 AM) Room air (03/03/21 3:00 AM) Room air (03/02/21 11:00 PM) Blood pressure sites Arm, right (03/03/21 7:00 AM) Arm, left (03/03/21 3:00 AM) Arm, left (03/02/21 11:00 PM) Temperature Route Oral (03/03/21 7:00 AM) Oral (03/03/21 3:00 AM) Oral (03/02/21 11:00 PM) Dry Weight 105.8 kg (03/02/21 9:20 AM) Social History Social History Type Response Smoking Status Former smoker; Other : smoked for 50 years; entered on: 09/22/15 Sex
--- OUTSIDE RECORDS SUMMARY | 2023-03-06 16:41 | XMS_ITS | Continuity of Care Document ---
Author Name Unknown Organization [facility] y Address [address] [place] [address] [address], [address] [place] [address]- Care Team Providers Care Gas Appliance Installer Name Role Phone David TALAVERA, River Primary Care Physician Encounter [facility] Date(s): 08/25/20 - 09/24/20 [facility] [address] [place] [address], [address] [place], [place] [address] Allergies, Adverse Reactions, Alerts Substance Reaction [...]
--- NOTE | 2023-03-06 16:47 | PC.NURSE ---
JEANNA from home. Per family report pt had back surgery a month ago, and came back from rehab last week. lives alone. Unwitnessed fall in morning, pt unable to get up on own, No LOC, + hs. Denies any patton, dizziness, blurry vision. VSS. Not on thinners.
--- NOTE | 2023-03-06 17:52 | ED.FALL ---
HPI - Fall General Chief Complaint: Fall Stated Complaint: FELL THIS AM + HEAD STRIKE + COLLAR Time Seen by Provider: 03/06/23 17:34 Source: patient and family Mode of arrival: EMS Limitations: no limitations History of Present Illness HPI Narrative: Patient lives alone status post lumbar spine surgery a month ago was in rehab discharge a week ago since been in home for last 1 week feeling off and foggy feels delirious today he got up from the bed to go to bathroom while coming back all of a sudden felt dizzy and slumped down hitting his head to the wall 1st no complete loss of consciousness called his son who came and saw him on the floor as he could not get up because of back surgery no fever no chills no urine symptoms patient is on oxycodone 10 mg 4 times a day for long time was prescribed Soma but has not taken it yet per patient's family patient been delirious and confused for last few days since discharge from the rehab Related Data Home Medications Medication Instructions Recorded Confirmed calcitonin (salmon) 200 1 spray intranasal DAILY 04/19/21 04/19/21 unit/actuation nasal spray diazepam 2 mg tablet 1 tab PO DAILY PRN anxiety 04/19/21 04/19/21 ferrous sulfate 325 mg (65 mg 1 tab PO DAILY 04/19/21 04/19/21 iron) tablet fluoxetine 40 mg capsule 1 cap PO DAILY 04/19/21 04/19/21 gabapentin 300 mg capsule 1 - 3 cap PO BEDTIME 04/19/21 04/19/21 metformin 500 mg tablet,extended 2 tab PO DAILY@1800 04/19/21 04/19/21 release 24 hr omeprazole 20 mg capsule,delayed 20 mg PO DAILY 04/19/21 04/19/21 release oxycodone 5 mg tablet 2 tab PO Q4H PRN moderate pain 04/19/21 04/19/21 simvastatin 40 mg tablet 1 tab PO BEDTIME 04/19/21 04/19/21 tamsulosin 0.4 mg capsule 1 cap PO DAILY 04/19/21 04/19/21 Previous Rx's Medication Instructions Recorded acetaminophen 500 mg tablet 500 mg PO Q6H PRN pain or fever 04/19/21 (Tylenol Extra Strength) #20 tabs cyclobenzaprine 5 mg tablet 5 mg PO Q8H PRN pain (scale score 04/19/21 7-10) 5 days #14 tabs lidocaine 5 % topical patch 1 patch topical DAILY PRN pain #30 04/19/21 (Lidoderm) ea Allergies Allergy/AdvReac Type Severity Reaction Status Date / Time lisinopril [Lisinopril] Allergy Unknown SWELLING Verified 04/18/21 09:43 TONGUE Review of Systems Review of Systems: Yes all other systems are reviewed and are negative [facility] Past Medical History Medical History Diabetes Paget's disease Surgical History History of back surgery Social History Social History Advance Directives: No Advance Directives Information Provided: Yes Physical Exam Vital Signs: Vital Signs: Last Vital Signs Temp 98.3 F 03/07/23 01:02 Pulse 83 03/07/23 01:02 Resp 15 03/07/23 01:02 BP 158/79 H 03/07/23 01:02 Pulse Ox 95 03/07/23 01:02 O2 Del Method Room Air 03/07/23 01:02 BMI result Body Mass Index 31.6 Appearance: Alert. Oriented X3. No acute distress. Delirious and confused sometimes Eyes: PERRLA, No Nystagmus ENT: Pharynx normal. Oral Mucosa moist, AT NC Neck: Normal inspection. Neck supple. No midline tenderness CVS: Normal heart rate and rhythm. Pulses normal. Respiratory: No respiratory distress. Equal air entry bilateral, no wheezing/rales/rhonchi Abdomen: Soft and nontender. Bowel sounds are present, no mass palpable, no CVA tenderness Skin: Skin warm and dry. Normal skin color. Normal skin turgor. Extremities: No lower extremity edema. No calf tenderness Neuro: Oriented X 3. No motor deficit. No sensory deficit.No cerebellar signs , cranial nerves II-XII intact Medical Decision Making Medical Decision Making MDM Narrative: Patient is status post lumbar surgery lives alone areas and weak workup negative for any significant metabolic changes patient is on oxycodone which she has been taking for a long time likely medication cause for his confusion patient lives alone family requesting patient to go to rehab/fci. Patient's CT scan of the head and C-spine negative for acute no significant metabolic abnormality noticed Differential Diagnosis Differential Diagnoses: The differential diagnosis associated with the presentation includes Metabolic encephalopathy/medications /infection Lab Data MDM Lab Attestation statement: I reviewed the patient's lab results. 03/06/23 18:49 03/06/23 18:49 Labs: Lab Results 03/06/23 03/06/23 03/06/23 Range/Units 18:49 18:49 18:49 WBC 9.4 (4.8-10.8) X10*3/uL RBC 2.34 L (4.60-5.80) X10*6/uL Hgb 7.8 L (14.0-18.0) g/dl Hct 24.4 L (42.0-52.0) % MCV 104.3 H (80.0-98.0) fL MCH 33.3 H (27.0-33.0) pg MCHC 32.0 (31.0-36.0) g/dl RDW 15.1 (11.0-16.0) % Plt Count 155 L (160-400) X10*3/uL MPV 9.4 (9.4-12.4) fL Immature Gran % (Auto) 0.4 (0.0-0.4) % Neut % (Auto) 79.8 H (45-73) % Lymph % (Auto) 8.3 L (20-40) % [place] % (Auto) 8.0 (2-11) % Eos % (Auto) 3.2 (0-4) % Baso % (Auto) 0.3 (0-2) % Lymph # (Auto) 0.8 L (1.2-4.9) X10*3/uL [place] # (Auto) 0.8 (0.1-1.2) X10*3/uL Eos # (Auto) 0.3 (0.0-0.4) X10*3/uL Baso # (Auto) 0.0 (0.0-0.2) X10*3/uL Abs Immat Gran (auto) 0.04 H (0.00-0.03) X10*3/uL Absolute Neuts (auto) 7.5 (2.0-8.3) x10*3/uL Absolute Nucleated RBC 0.000 (0.0-0.012) X10*3/uL Nucleated RBC % (auto) 0.0 (0.0-0.2) /100WBC Sodium 138 (135-145) mmol/L Potassium 4.8 (3.3-5.1) mmol/L Chloride 103 (96-108) mmol/L Carbon Dioxide 28 (22-29) mmol/L Anion Gap 12 (12-20) BUN 22 H (9-16) mg/dL Creatinine 1.03 (0.5-1.4) mg/dL Estim Creat Clear Calc 65.8 Estimated GFR > 60 Random Glucose 86 (60-115) mg/dL Calcium 9.1 (8.4-10.2) mg/dL Magnesium 1.7 (1.6-2.6) mg/dL Total Bilirubin 0.6 (0.0-1.0) mg/dL AST 16 (5-37) U/L ALT 8 (0-40) U/L Alkaline Phosphatase 121 H (39-117) U/L Troponin I High Sens 17.8 (<3.5-35.0) ng/L Total Protein 5.9 L (6.5-8.0) g/dL Albumin 2.8 L (3.5-5.0) g/dL Urine Color Urine Appearance Urine pH (5.0-9.0) Ur Specific [place] (1.005-1.025) Urine Protein (Neg-Trace) mg/dL Urine Glucose (UA) (Negative) mg/dL Urine Ketones (Negative) mg/dL Urine Blood (Negative) Urine Nitrite (Negative) Ur Leukocyte Esterase (Negative) Urine RBC (0-2) /HPF Urine WBC (0-5) /HPF Ur Squamous Epith Cells (0-2) /HPF Urine Bacteria (None Seen) Hyaline Casts (0-2) /LPF 03/06/23 Range/Units 18:49 WBC (4.8-10.8) X10*3/uL RBC (4.60-5.80) X10*6/uL Hgb (14.0-18.0) g/dl Hct (42.0-52.0) % MCV (80.0-98.0) fL MCH (27.0-33.0) pg MCHC (31.0-36.0) g/dl RDW (11.0-16.0) % Plt Count (160-400) X10*3/uL MPV (9.4-12.4) fL Immature Gran % (Auto) (0.0-0.4) % Neut % (Auto) (45-73) % Lymph % (Auto) (20-40) % [place] % (Auto) (2-11) % Eos % (Auto) (0-4) % Baso % (Auto) (0-2) % Lymph # (Auto) (1.2-4.9) X10*3/uL [place] # (Auto) (0.1-1.2) X10*3/uL Eos # (Auto) (0.0-0.4) X10*3/uL Baso # (Auto) (0.0-0.2) X10*3/uL Abs Immat Gran (auto) (0.00-0.03) X10*3/uL Absolute Neuts (auto) (2.0-8.3) x10*3/uL Absolute Nucleated RBC (0.0-0.012) X10*3/uL Nucleated RBC % (auto) (0.0-0.2) /100WBC Sodium (135-145) mmol/L Potassium (3.3-5.1) mmol/L Chloride (96-108) mmol/L Carbon Dioxide (22-29) mmol/L Anion Gap (12-20) BUN (9-16) mg/dL Creatinine (0.5-1.4) mg/dL Estim Creat Clear Calc Estimated GFR Random Glucose (60-115) mg/dL Calcium (8.4-10.2) mg/dL Magnesium (1.6-2.6) mg/dL Total Bilirubin (0.0-1.0) mg/dL AST (5-37) U/L ALT (0-40) U/L Alkaline Phosphatase (39-117) U/L Troponin I High Sens (<3.5-35.0) ng/L Total Protein (6.5-8.0) g/dL Albumin (3.5-5.0) g/dL Urine Color Yellow Urine Appearance Clear Urine pH 5.5 (5.0-9.0) Ur Specific [place] 1.015 (1.005-1.025) Urine Protein 30 (1+) H (Neg-Trace) mg/dL Urine Glucose (UA) Negative (Negative) mg/dL Urine Ketones Negative (Negative) mg/dL Urine Blood Negative (Negative) Urine Nitrite Negative (Negative) Ur Leukocyte Esterase Negative (Negative) Urine RBC 0-2 (0-2) /HPF Urine WBC 0-5 (0-5) /HPF Ur Squamous Epith Cells 0-2 (0-2) /HPF Urine Bacteria None Seen (None Seen) Hyaline Casts 0-2 (0-2) /LPF Independent Interpretation I performed an independent interpretation of an: EKG Interpretation: Normal sinus rhythm heart rate 89 beats per minute normal intervals left axis deviation right bundle-branch block no acute ST T wave changes Discharge Plan Discharge Clinical Impression: Confusion and disorientation Patient Disposition: Still a Patient Prescriptions: No Action fluoxetine 40 mg capsule 1 cap PO DAILY simvastatin 40 mg tablet 1 tab PO BEDTIME tamsulosin 0.4 mg capsule 1 cap PO DAILY calcitonin (salmon) 200 unit/actuation spray,non-aerosol 1 spray intranasal DAILY diazepam 2 mg tablet 1 tab PO DAILY PRN (Reason: anxiety) ferrous sulfate 325 mg (65 mg iron) tablet 1 tab PO DAILY gabapentin 300 mg capsule 1 - 3 cap PO BEDTIME Rx Instructions: TAKE 1-2 HOURS BEFORE BED oxycodone 5 mg tablet 2 tab PO Q4H PRN (Reason: moderate pain) omeprazole 20 mg Capsule,Delayed Release(Dr/Ec) 20 mg PO DAILY metformin 500 mg tablet extended release 24 hr 2 tab PO DAILY@1800 acetaminophen [Tylenol Extra Strength] 500 mg tablet 500 mg PO Q6H PRN (Reason: pain or fever) Qty: 20 0RF lidocaine [Lidoderm] 5 % adhesive patch,medicated 1 patch topical DAILY MDD remove after 12 hours PRN (Reason: pain) Qty: 30 0RF Rx Instructions: leave on most painful area for up to 12 hrs cyclobenzaprine 5 mg tablet 5 mg PO Q8H PRN (Reason: pain (scale score 7-10)) 5 Days Qty: 14 0RF
--- NOTE | 2023-03-06 18:03 | ECG_ITS ---
Test Reason : fall Blood Pressure : / mmHG Vent. Rate : 089 BPM Atrial Rate : 089 BPM P-R Int : 140 ms QRS Dur : 146 ms QT Int : 392 ms P-R-T Axes : 014 -71 035 degrees QTc Int : 476 ms Normal sinus rhythm with sinus arrhythmia Left axis deviation Right bundle branch block Abnormal ECG When compared with ECG of 22-DEC-2017 22:57, Premature atrial complexes are no longer Present Right bundle branch block is now Present Referred By: Deondre Bender Electronically Signed By:Hector Chirinos
[2023-03-06 18:53] LABS: MANUAL DIFF FLAG NO
[2023-03-06 18:54] LABS: Basophils Percent Auto 0.3 % (0-2); Eosinophils Absolute Auto 0.3 X10*3/uL (0.0-0.4); Eosinophils Percent Auto 3.2 % (0-4); Hematocrit 24.4 % (42.0-52.0); Hemoglobin 7.8 g/dl (14.0-18.0); Imm Gran Abs Auto 0.04 X10*3/uL (0.00-0.03); Imm Gran Pct Auto 0.4 % (0.0-0.4); Lymphocytes Absolute Auto 0.8 X10*3/uL (1.2-4.9); Lymphocytes Percent Auto 8.3 % (20-40); Mean Corpuscular Hemoglobin 33.3 pg (27.0-33.0); Mean Corpuscular Volume 104.3 fL (80.0-98.0); Mean Platelet Volume 9.4 fL (9.4-12.4); Monocytes Absolute Auto 0.8 X10*3/uL (0.1-1.2); Neutrophils Absolute Auto 7.5 x10*3/uL (2.0-8.3); Neutrophils Percent Auto 79.8 % (45-73); Platelet Count 155 X10*3/uL (160-400); Red Blood Count 2.34 X10*6/uL (4.60-5.80); Red Cell Distribution Width 15.1 % (11.0-16.0); White Blood Count 9.4 X10*3/uL (4.8-10.8)
[2023-03-06 18:55] LABS: Appearance Urine Clear; Color Urine Yellow; Glucose Urine UA Negative (Negative); Leukocyte Esterase Urine Negative (Negative); Nitrite Urine Negative (Negative); PH 5.5 (5.0-9.0); Specific Gravity - Urine 1.015 (1.005-1.025); UMIC TRIGGER UACC YES; Urine Blood Negative (Negative); Urine Ketones Negative (Negative); Urine Protein 30 (1+) mg/dL (Neg-Trace)
[2023-03-06 19:00] LABS: Bacteria Urine None Seen (None Seen); Hyaline Casts Urine 0-2 /LPF (0-2); RBC Urine 0-2 /HPF (0-2); Squamous Epithelial Cell Urine 0-2 /HPF (0-2); WBC Urine 0-5 /HPF (0-5)
[2023-03-06 19:09] LABS: Alanine Aminotransferase 8 U/L (0-40); Albumin Level 2.8 g/dL (3.5-5.0); Alkaline Phosphatase 121 U/L (39-117); Anion Gap 12 (12-20); Aspartate Amino Transferase 16 U/L (5-37); Bilirubin Total 0.6 mg/dL (0.0-1.0); Blood Urea Nitrogen 22 mg/dL (9-16); Calcium 9.1 mg/dL (8.4-10.2); Carbon Dioxide 28 mmol/L (22-29); Chloride 103 mmol/L (96-108); Creatinine Clr Calc Pharmacy 65.8; Estimated Glomerular Filt Rate > 60; Glucose Random 86 mg/dL (60-115); Magnesium 1.7 mg/dL (1.6-2.6); Potassium 4.8 mmol/L (3.3-5.1); Sodium 138 mmol/L (135-145); Total Protein 5.9 g/dL (6.5-8.0)
[2023-03-06 19:16] LABS: Troponin-I High Sensitivity 17.8 ng/L (<3.5-35.0)
[2023-03-06 20:19] VITALS: BP 150/69; PULSE 87; RESP 20; TEMP 37.3; O2SAT 95
--- NOTE | 2023-03-07 00:14 | PC.NURSE ---
assumed care of pt at 23:15. pt resting comfortably on stretcher. per provider pt is PT/CM eval in morning. will ctm
[2023-03-07 01:02] VITALS: BP 158/79; PULSE 83; RESP 15; TEMP 36.8; O2SAT 95
[2023-03-07 02:41] LABS: COVID-19 Test Negative (Negative); IDNOW Serial# 08D9AD1C
[2023-03-07 02:57] VITALS: BP 155/79; PULSE 91; RESP 17; TEMP 36.6; O2SAT 94
[2023-03-07] MEDS: OLANZapine ODT 10 MG TAB.RAPDIS 2.5 MG TRANSLINGU (04:27)
[2023-03-07 06:00] VITALS: BP 167/85; PULSE 95; RESP 17; TEMP 37.4; O2SAT 98
--- NOTE | 2023-03-07 07:23 | PC.NURSE ---
Resumed care of patient this morning, provider noted of pts agitation, confusion, multiple attempts to get out of bed. 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 Provider notified home medications have not been ordered, which could be leading to some withdrawl confusion, med rec ordered, IM Zyprexa given. Pt educated on IM, why we were giving it to him, he agreed to get medication at this time. IM given with no complications
[2023-03-07] MEDS: OLANZapine 10 MG VIAL 5 MG IM (07:27)
--- NOTE | 2023-03-07 08:15 | PHA.MEDREC ---
Pharmacy Consult ? Medication Reconciliation Pharmacy has completed the medication reconciliation. spoke with patient's daughter over the phone. Was able to verify medications. She was unsure about simvastatin, tolterodine, and methocarbamol and was waiting to see the doctor with him to be sure he is supposed to be on these.
[2023-03-07] MEDS: Ferrous Sulfate 324 MG TABLET.DR PO (08:32)
[2023-03-07] MEDS: FLUoxetine HCl 20 MG CAPSULE 40 MG PO (08:32)
[2023-03-07] MEDS: oxyCODONE HCl Immed Release 5 MG TABLET 10 MG PO ×2 (08:32→16:58)
[2023-03-07] MEDS: Tamsulosin HCL 0.4 MG CAPSULE PO (08:32)
[2023-03-07] MEDS: Tolterodine Tartrate LA 4 MG CAP.ER.24H PO (09:59)
[2023-03-07] MEDS: methocarbamoL 750 MG TABLET PO (09:59)
[2023-03-07 12:05] LABS: MANUAL DIFF FLAG NO
[2023-03-07 12:06] LABS: Basophils Percent Auto 0.4 % (0-2); Eosinophils Absolute Auto 0.1 X10*3/uL (0.0-0.4); Eosinophils Percent Auto 0.8 % (0-4); Hemoglobin 8.8 g/dl (14.0-18.0); Imm Gran Abs Auto 0.05 X10*3/uL (0.00-0.03); Imm Gran Pct Auto 0.5 % (0.0-0.4); Lymphocytes Absolute Auto 1.3 X10*3/uL (1.2-4.9); Lymphocytes Percent Auto 12.1 % (20-40); Mean Corpuscular HGB Conc 32.6 g/dl (31.0-36.0); Mean Corpuscular Hemoglobin 32.8 pg (27.0-33.0); Mean Corpuscular Volume 100.7 fL (80.0-98.0); Mean Platelet Volume 9.6 fL (9.4-12.4); Monocytes Absolute Auto 1.2 X10*3/uL (0.1-1.2); Monocytes Percent Auto 11.4 % (2-11); Neutrophils Absolute Auto 7.9 x10*3/uL (2.0-8.3); Neutrophils Percent Auto 74.8 % (45-73); Platelet Count 152 X10*3/uL (160-400); Red Blood Count 2.68 X10*6/uL (4.60-5.80); Red Cell Distribution Width 14.9 % (11.0-16.0); White Blood Count 10.6 X10*3/uL (4.8-10.8)
--- NOTE | 2023-03-07 12:14 | MHC.CM.ED ---
Received case management consult overnight. Patient came to the ER after a fall. Patient found to be confused. Work up essentially negative. Physical therapy eval is pending. Spoke with patient's daughter, Genoveva, via telephone at [phone]. Patient typically lives alone and is alert and oriented at [facility]. Patient had back surgery at [facility] in January. Patient was discharged to [facility] from [facility]. Patient was discharged from [facility] on 02/28 with [facility]. Patient was the one who pushed for the discharge. [facility] did not feel he was ready for discharge but patient is his own person. PCP verified. Copy of HCP requested from [facility]. Genoveva would be agreeable to patient returning to [facility] if there is a bed available. Genoveva also agreeable to referral being broadcasted to see which beds are available if [facility] is unable to offer a bed. Genoveva is concerned about patient being so confused. T/W was at patient's bedside and saw that patient is very confused. Nyasia SABILLON made aware. Labs and MRI ordered. Continue to monitor for d/c needs.
[2023-03-07 14:50] VITALS: BP 125/79; PULSE 101; RESP 16; TEMP 37.6; O2SAT 95
[2023-03-07] MEDS: Nystatin Powder 15 GM BOTTLE 1 APPL TOPICAL (15:23)
--- NOTE | 2023-03-07 16:07 | PC.NURSE ---
Pt daughter came back to bedside reporting [facility] had called and reported the pt needed to go back to [facility] as he needs to go in for immediate surgery as two screws in his back have come out, and two of his vertebra are collapsed. Nyasia SABILLON made aware, hospital transfer already in place. Awaiting to here back about transport to [place] at this time. Daughter and son at bedside
[2023-03-07] MEDS: metFORMIN HCl ER 500 MG TAB.ER.24H 1000 MG PO (16:58)
--- NOTE | 2023-03-07 19:48 | PM.PSYCN ---
History of Present Illness Date of Service: 03/07/2023 Chief Complaint: FELL THIS AM + HEAD STRIKE + COLLAR Reason for Consult: delirium Discussed with referring provider: Yes Sources of Information: patient interviewed, chart reviewed and crisis/core team assessment reviewed HPI Narrative: Mr. Varghese is a 78 year-old male who was brought by family to ED due to increase confusion, combative behaviors in past 3-4 days. Pt had back surgery in January at [facility]. He was sent to rehab in [place]. He was later discharged home. Per daughter, pt presented as more confused 3 days after returning home calling adult children reporting that police was after him, not knowing where he was. Pt seen today. He presents with poor attention. He is not oriented to place, or situation. 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 He is trying to get up. He is not able to recognize his daughter, reports she is someone else. CBC shows macrocytic anemia. Head CT with no acute finding. CMP no overt abdnormalities other than low albumin, slightly elevated Al. phosphatase. UA does not show signs of infection. Pt is afebrile. No SOB, o2sat wnl. Medical Evaluation Reviewed: Yes [facility] Medical History Diabetes Paget's disease Surgical History History of back surgery Diagnostics Vital Signs (24Hr): Vital Signs - 24 hr 03/06/23 20:19 03/07/23 01:02 03/07/23 02:57 Temperature 99.2 F 98.3 F 97.8 F Pulse Rate 87 83 91 Respiratory Rate 20 15 17 Blood Pressure 150/69 H 158/79 H 155/79 H Pulse Oximetry 95 95 94 Oxygen Delivery Method Room Air Room Air Room Air 03/07/23 06:00 03/07/23 14:50 Temperature 99.3 F 99.7 F Pulse Rate 95 101 H Respiratory Rate 17 16 Blood Pressure 167/85 H 125/79 Pulse Oximetry 98 95 Oxygen Delivery Method Room Air Room Air BMI result Body Mass Index 31.6 Labs 03/07/23 11:58 03/06/23 18:49 Labs: Laboratory Results - last 48 hr 08/03/2103/06/23 03/06/23 18:49 18:49 18:49 WBC 9.4 RBC 2.34 L Hgb 7.8 L Hct 24.4 L MCV 104.3 H MCH 33.3 H MCHC 32.0 RDW 15.1 Plt Count 155 L MPV 9.4 Immature Gran % (Auto) 0.4 Neut % (Auto) 79.8 H Lymph % (Auto) 8.3 L [place] % (Auto) 8.0 Eos % (Auto) 3.2 Baso % (Auto) 0.3 Lymph # (Auto) 0.8 L [place] # (Auto) 0.8 Eos # (Auto) 0.3 Baso # (Auto) 0.0 Abs Immat Gran (auto) 0.04 H Absolute Neuts (auto) 7.5 Absolute Nucleated RBC 0.000 Nucleated RBC % (auto) 0.0 Sodium 138 Potassium 4.8 Chloride 103 Carbon Dioxide 28 Anion Gap 12 BUN 22 H Creatinine 1.03 Estim Creat Clear Calc 65.8 Estimated GFR > 60 Random Glucose 86 Calcium 9.1 Magnesium 1.7 Total Bilirubin 0.6 AST 16 ALT 8 Alkaline Phosphatase 121 H Troponin I High Sens 17.8 Total Protein 5.9 L Albumin 2.8 L Urine Color Urine Appearance Urine pH Ur Specific [place] Urine Protein Urine Glucose (UA) Urine Ketones Urine Blood Urine Nitrite Ur Leukocyte Esterase Urine RBC Urine WBC Ur Squamous Epith Cells Urine Bacteria Hyaline Casts COVID-19 ([facility]) COVID-19 Clin Com 03/06/23 03/07/23 03/07/23 18:49 02:01 11:58 WBC 10.6 RBC 2.68 L Hgb 8.8 L Hct 27.0 L MCV 100.7 H MCH 32.8 MCHC 32.6 RDW 14.9 Plt Count 152 L MPV 9.6 Immature Gran % (Auto) 0.5 H Neut % (Auto) 74.8 H Lymph % (Auto) 12.1 L [place] % (Auto) 11.4 H Eos % (Auto) 0.8 Baso % (Auto) 0.4 Lymph # (Auto) 1.3 [place] # (Auto) 1.2 Eos # (Auto) 0.1 Baso # (Auto) 0.0 Abs Immat Gran (auto) 0.05 H Absolute Neuts (auto) 7.9 Absolute Nucleated RBC 0.000 Nucleated RBC % (auto) 0.0 Sodium Potassium Chloride Carbon Dioxide Anion Gap BUN Creatinine Estim Creat Clear Calc Estimated GFR Random Glucose Calcium Magnesium Total Bilirubin AST ALT Alkaline Phosphatase Troponin I High Sens Total Protein Albumin Urine Color Yellow Urine Appearance Clear Urine pH 5.5 Ur Specific [place] 1.015 Urine Protein 30 (1+) H Urine Glucose (UA) Negative Urine Ketones Negative Urine Blood Negative Urine Nitrite Negative Ur Leukocyte Esterase Negative Urine RBC 0-2 Urine WBC 0-5 Ur Squamous Epith Cells 0-2 Urine Bacteria None Seen Hyaline Casts 0-2 COVID-19 ([facility]) Negative COVID-19 Clin Com See Note Imaging Radiology Impressions: ITS Impressions Cervical Spine CT 03/06/23 18:07 IMPRESSION: 1. No acute intracranial process seen. 2. There is reversal of cervical lordosis with degenerative disc changes C5-C6, C6-C7 and C7-T1 disc levels. There is grade 1 anterolisthesis C3 over C4, C4 over C5 and C7 over T1. No visible acute fracture or dislocation seen. Head CT 03/06/23 18:07 IMPRESSION: 1. No acute intracranial process seen. 2. There is reversal of cervical lordosis with degenerative disc changes C5-C6, C6-C7 and C7-T1 disc levels. There is grade 1 anterolisthesis C3 over C4, C4 over C5 and C7 over T1. No visible acute fracture or dislocation seen. Chest X-Ray 03/07/23 12:04 IMPRESSION: 1. Bilateral low lung volumes. 2. Accentuation of the pulmonary vasculature. Mental Status Exam Mental Status Exam Narrative: Appearance: wearing hospital gown, restless, trying to get up Behavior: combative Psychomotor: agitation Alert, poor attention, not oriented to place, situation, VH/AH: grabbing things that are not there delusions: paranoia Medications Allergies Allergies Allergy/AdvReac Type Severity Reaction Status Date / Time lisinopril [Lisinopril] Allergy Unknown SWELLING Verified 04/18/21 09:43 TONGUE Assessment & Plan Assessment & Plan (1) Delirium due to another medical condition, persistent, hyperactive: Status: Acute Code(s): F05 - Delirium due to known physiological condition Plan Mr. Varghese presents with s/s of delirium- poor attention, disorientation, perceptual disturbances (grabbing things that are not there). This is not presentation of dementia, although underlying dementing process cannot be ruled out. There is no obvious medical reason at this point for his delirium. Certainly it is not due to abruptly d/c seroquel, which was started while he was at [facility] after surgery when he presented with delirium (subsequently d/c after delirium cleared). PLAN 1. restart seroquel 25mg po BID, prn 25 q4h prn agitation. monitor ekg, maintain qtc<500ms, K>4, Mg>2. 2. avoid anticholinergic medications and antihistamine medication for management of agitation such as benadryl. 3. check b12, folate, TSH Total time managing care of this patient today ____ minutes.
== END 2023-03-07 18:02 | disposition short-term general hospital (02) ==
PROVIDERS: Physician Assistant; Emergency Provider Internal Medicine; PCP Internal Medicine
DX: S09.90XA Unspecified injury of head, initial encounter (principal); R42 Dizziness and giddiness; D64.9 Anemia, unspecified; R41.0 Disorientation, unspecified; R94.31 Abnormal electrocardiogram [ECG] [EKG]; M54.2 Cervicalgia; R51.9 Headache, unspecified; W06.XXXA Fall from bed, initial encounter; Y93.9 Activity, unspecified; Y92.9 Unspecified place or not applicable; Y99.9 Unspecified external cause status; Z79.899 Other long term (current) drug therapy; Z20.822 Contact with and (suspected) exposure to COVID-19; Z20.828 Contact with and (suspected) exposure to other viral communicable diseases
CPT/HCPCS: 36415; 70450; 71045; 72125; 80053; 81001; 83735; 84484; 85025; 87635; 93005; 96372; 99285

== ENCOUNTER → 2023-03-06 16:39 | Outpatient (BNV) | payer MEDICARE, SELFPAY | PROVIDERS: Emergency Provider Internal Medicine; PCP Internal Medicine; Visit Provider Social Worker | DX: F05 Delirium due to known physiological condition (principal) | CPT/HCPCS: 99285 ==

== ENCOUNTER → 2023-03-06 18:03 | Outpatient (BNV) | payer MEDICARE, SELFPAY | PROVIDERS: Emergency Provider Internal Medicine; PCP Internal Medicine; Visit Provider Internal Medicine Cardiovascular Disease | DX: R94.31 Abnormal electrocardiogram [ECG] [EKG] (principal); I45.10 Unspecified right bundle-branch block | CPT/HCPCS: 93010 ==

== ENCOUNTER 2023-09-03 13:18 | Outpatient (REF) | payer MEDICARE, SELFPAY ==
--- NOTE | ~2023-09-03 | XR_ITS ---
EXAMINATION: XR ABDOMEN KUB CLINICAL INDICATION: Calculus of kidney COMPARISON: None available. TECHNIQUE: AP view of the abdomen. FINDINGS: Nonspecific bowel pattern. No renal calculi identified. Pelvic phleboliths. Cholecystectomy clip, thoracolumbar surgical hardware. XR/XR KUB IMPRESSION: No radiographic evidence of radiopaque renal calculi.
== END 2023-09-03 13:19 | disposition home or self-care (01) ==
LOC: HO.XRAY 13:18
PROVIDERS: PCP Internal Medicine; Visit Provider Urology
DX: N20.0 Calculus of kidney (principal)
CPT/HCPCS: 74018